=== PATIENT | female | born 1995 | race Two or more races ===

== ENCOUNTER 2025-03-06 11:47 | Emergency (ER) | payer MEDICAID, SELFPAY ==
[2025-03-06 12:02] VITALS: BP 105/71; PULSE 73; RESP 18; TEMP 36.7; O2SAT 100; BMI 27.3
--- NOTE | 2025-03-06 12:09 | EKG_ITS ---
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
--- NOTE | 2025-03-06 12:12 | PD.EDWEAK ---
ED Weakness RME/HPI General Chief complaint: Weakness Stated complaint: Tired X 3 days, right flank pain X 1 month Time Seen by Provider: 03/06/25 12:09 Arrival date/time: 03/06/25 11:47 Limitations: no limitations RME / HPI RME / HPI Narrative: 1 month history of epigastric pain, back pain and 3 days of fatigue. She states she binge drinks and last drink 3 to 4 days ago. She states when she does drink she drinks 3-4 bottles at a time. Her alcohol of choice is fireball . Denies any head injuries. Has no syncopal episodes or fall. Has no hematemesis or lower GI bleed. She has no other acute complaints Related Data Previous Rx's ?Medication ?Instructions ?Recorded loratadine 5 mg-pseudoephedrine ER 1 tab PO Q12H PRN congestion #14 06/21/22 120 mg tablet,extended tabs release,12hr (Alavert D-12 Allergy-Sinus) prednisone 10 mg tablet 10 mg PO BID #6 tabs 06/21/22 omeprazole 20 mg capsule,delayed 20 mg PO QDAY #30 caps 03/06/25 release Allergies Allergy/AdvReac Type Severity Reaction Status Date / Time No Known Allergies Allergy Verified 03/06/25 11:55 Review of Systems Review of Systems Systems Reviewed: All systems reviewed, normal except as documented ED Exam General Limitations: Present no limitations General appearance: Present alert and in no apparent distress Head Head exam: Present atraumatic Eye Eye exam: Present normal appearance, PERRL and EOMI ENT ENT exam: Present normal exam, normal oropharynx and mucous membranes moist Neck Neck exam: Present normal inspection, full ROM and trachea midline Chest Chest inspection: Present normal inspection and symmetric chest wall rise Respiratory Respiratory exam: Present normal lung sounds bilaterally Cardiovascular Cardiovascular exam: Present regular rate, normal rhythm and normal heart sounds Abdominal Exam Abdominal exam: Present soft and normal bowel sounds Extremities Exam Extremities exam: Present normal inspection and full ROM Back Exam Back exam: Present normal inspection and full ROM Neurological Exam Neurological exam: Present alert and oriented X3 Psychiatric Psychiatric exam: Present anxious Skin Skin exam: Present warm, dry, intact and normal color Course Quality Measures none Orders Category Date Time Status EKG (ED ONLY) *Do not use* NOW Care 03/06/25 12:10 Completed EKG (ED Only) Stat Exams 03/06/25 12:09 Draft Alcohol, Blood Medical Stat Lab 03/06/25 12:18 Completed CBC Stat Lab 03/06/25 12:18 Completed CMP [Comprehensive Metabolic Panel] Stat Lab 03/06/25 12:18 Completed Drug Screen,Urine Stat Lab 03/06/25 12:40 Completed HCG,Qualitative Serum Stat Lab 03/06/25 12:18 Completed TSH [Thyroid Stimulating Hormone] Stat Lab 03/06/25 12:18 Completed UA, C/S IF [Urinalysis, C/S if Indicated] Stat Lab 03/06/25 12:40 Completed Vital Signs Vital signs: Vital Signs Temperature 98.1 F 03/06/25 12:02 Pulse Rate 73 03/06/25 12:02 Respiratory Rate 18 03/06/25 12:02 Blood Pressure 105/71 03/06/25 12:02 Pulse Oximetry (%) 100 03/06/25 12:02 Oxygen Delivery Method Room Air 03/06/25 12:02 Weakness MDM Narrative MDM Narrative:: 1 month history of epigastric pain, back pain and 3 days of fatigue. She states she binge drinks and last drink 3 to 4 days ago. She states when she does drink she drinks 3-4 bottles at a time. Her alcohol of choice is fireball . Denies any head injuries. Has no syncopal episodes or fall. Has no hematemesis or lower GI bleed. She has no other acute complaints On exam, patient is nontoxic-appearing although she is anxious appearing. Vital signs are stable. Her CBC reveals a mild anemia with a hemoglobin 10.7 and hematocrit 35.2. She has no metabolic derangement. Urine drug screen is positive for marijuana and cocaine. EKG and remaining studies are unremarkable. Results were discussed with the patient. She would like some assistance in alcohol abuse. This was discussed with our social media manager who also met with the patient. Patient was encouraged to discontinue alcohol abuse. She will be discharged with a prescription of omeprazole. She is asked to return as needed for any worsening or emergent changes Patient data External records reviewed:: None Clinical information provided by:: patient Social determinants that could affect healthcare access:: substance use Patient has the following chronic illnesses:: Alcohol abuse How is presenting disease/condition affected by chronic disease/condition?: exacerbated by Evaluation data The following diagnostics were reviewed and interpreted by me:: lab results (Mild anemia, no leukocytosis. No metabolic derangement. Lipase is unremarkable. UDS is positive for cocaine and marijuana), radiology exam(s) and EKG tracing(s) (Normal sinus rhythm at [address] changes or dynamic T waves) Lab and/or radiology exams considered but not ordered:: n/a Interpretation Summary: Mild anemia Medications / Prescriptions Medications or Prescriptions considered but not ordered:: n/a Medication administrations:: n/a Consultations Consultation(s) initiated? (list below): Yes Diagnosis Weakness Differential Diagnosis: anemia, hypoglycemia and dehydration Most likely diagnosis given after review of the tests above:: Alcohol abuse, anemia Admission Indicated Admission indicated?: not indicated Admission Request Was there a request for admission?: No Disposition Plan Disposition Plan: Discharge Discharge Attestation Discharge Attestation: The patient and all family members were given an opportunity to ask questions and understood the discharge instructions. Discharge instructions specifically effects, indications for sooner follow up or return to the emergency department, and the expected course of current diagnosis. Patient condition: Stable Discharge Plan Plan Patient Disposition: HOME (Self Care) Patient condition on transfer: Stable Prescriptions/Referrals Prescriptions/Med Rec: New omeprazole 20 mg capsule,delayed release(DR/EC) 20 mg PO QDAY Qty: 30 0RF No Action Alavert D-12 Allergy-Sinus 5-120 mg tablet extended release 12 hr 1 tab PO Q12H PRN (Reason: congestion) Qty: 14 0RF prednisone 10 mg tablet 10 mg PO BID Qty: 6 0RF Referrals: Yue Jimenez SOFTWARE ENGINEER DEVELOPER [Primary Care Provider] - In 1 week Problem List Clinical Impression: Alcohol abuse, Acute epigastric pain Patient/Caregiver Discharge Instructions Education Materials: Alcohol Addiction Additional Instructions: - Use the provided medications as prescribed. - Follow-up with your primary doctor. - Return here at anytime for any worsening changes needed. Print Language: Sami Stand Alone Forms: Daisha Award Info., Patient Portal Info Letter
[2025-03-06 12:30] LABS: Basophils # (Auto) 0.0 Thou/mm3 (0.0-0.2); Basophils % (Auto) 0 % (0-2.5); Eosinophils # (Auto) 0.1 Thou/mm3 (0.0-0.5); Eosinophils % (Auto) 1 % (0-10); Hematocrit 35.2 % (36.0-46.0); Hemoglobin 10.7 g/dL (12.0-16.0); Immature Granulocytes Auto 0.01 Thou/mm3 (0.00-0.00); Lymphocytes # (Auto) 1.0 Thou/mm3 (1.0-4.8); Lymphocytes % (Auto) 19 % (10-50); Mean Corpuscular HGB Conc 30.4 g/dl (31.0-37.0); Mean Corpuscular Hemoglobin 23.5 pg (25.0-35.0); Mean Corpuscular Volume 77 fL (80-100); Monocytes # (Auto) 0.3 Thou/mm3 (0.0-0.8); Monocytes % (Auto) 6 % (0-12); Neutrophils # (Auto) 3.9 Thou/mm3 (1.8-7.7); Neutrophils % (Auto) 73 % (37-80); Nucleated Red Blood Cell # 0.00 Thou/mm3 (0.00-0.00); Nucleated Red Blood Cell % 0 /100 WBC (0); Platelet Count 176 Thou/mm3 (140-440); RDW Standard Deviation 48.3 fL (36.4-46.3); Red Blood Count 4.56 Miln/mm3 (4.00-5.20); White Blood Count 5.4 Thou/mm3 (3.6-11.0)
[2025-03-06 12:39] LABS: HCG,Qualitative Serum Negative
[2025-03-06 12:53] LABS: Collection Type, Urine Voided
[2025-03-06 12:58] LABS: Alanine Aminotransferase < 7 U/L (10-49); Albumin, Serum 3.8 gm/dL (3.5-5.0); Albumin/Globulin Ratio 1.4 (1.2-2.2); Alcohol, Blood Medical < 3.0 mg/dL (0-10.0); Alkaline Phosphatase 55 U/L (46-116); Anion Gap 5 (7-16); Aspartate Amino Transferase 16 U/L (0-34); BUN/Creatinine Ratio 9 Ratio (12-20); Bilirubin,Total 0.5 mg/dL (0.3-1.2); Blood Urea Nitrogen 7 mg/dL (9-23); Calcium 8.6 mg/dL (8.3-10.6); Calcium (Corrected) 8.8 mg/dL (8.5-10.1); Carbon Dioxide 28.7 mMol/L (20.0-31.0); Chloride 104 mMol/L (98-107); Creatinine (Component) 0.8 mg/dL (0.6-1.3); Estimated Creatinine Clearance 100.3 mL/min (>60); Globulin 2.8 gm/dL (2.3-3.5); Glucose 84 mg/dL (74-106); Osmolality,Calculated 272 (275-295); Potassium 4.3 mMol/L (3.4-5.1); Sodium 138 mMol/L (136-145); Thyroid Stimulating Hormone 0.85 uIU/mL (0.55-4.78); Total Protein 6.6 gm/dL (5.7-8.2); eGFR > 60 See Note
[2025-03-06 13:32] LABS: Amphetamine/Methamp Scrn,U Negative (Negative); Barbiturate Screen,Urine Negative (Negative); Benzodiazepines Screen,Urine Negative (Negative); Benzoylecgonine Screen, Ur Positive (Negative); Fentanyl Screen,Urine Negative (Negative); Opiate Screen,Urine Negative (Negative); THC Screen,Urine Positive (Negative)
[2025-03-06 13:35] LABS: Bilirubin,Urine Negative (Negative); Blood,Urine Negative (Negative); Clarity,Urine Clear (Clear/Hazy); Color,Urine Yellow (Lt Yel-Yel); Culture Indicated,Urine Not Indicated; Glucose, Urine Negative (Negative); Ketones,Urine Negative (Negative); Leukocyte Esterase,Urine Negative (Negative); Nitrite,Urine Negative (Negative); PH,Urine 6.0 (5.0-7.0); Protein,Urine Trace (Neg - Trace); RBC,Urine 4 /hpf (0-3); Specific Gravity,Urine 1.034 (1.001-1.035); Squamous Epithelial Cell,Urine 1 /hpf (0-5); Urobilinogen,Urine 3.0 mg/dL (0.0-1.0); WBC,Urine < 1 /hpf (0-5)
[2025-03-06 14:24] VITALS: BP 108/65; PULSE 77; RESP 18; TEMP 36.6; O2SAT 98
--- NOTE | 2025-03-06 14:53 | PC.CC ---
ASW spoke with pts about her options for outpatient and residential drug/alcohol treatment. Pt was receptive and stated she would reach out to outpatient treatment in [place].
== END 2025-03-06 14:49 | disposition home or self-care (01) ==
PROVIDERS: Physician Assistant Medical; Emergency Provider Physician Assistant; PCP Registered Nurse Community Health
DX: R10.10 Upper abdominal pain, unspecified (principal); R10.13 Epigastric pain; D64.9 Anemia, unspecified
CPT/HCPCS: 36415; 80053; 80307; 80320; 81001; 84443; 84703; 85025; 93005; 99283; G0480

== ENCOUNTER 2025-05-06 19:08 | Emergency (ER) | payer MEDICAID, SELFPAY ==
[2025-05-06 19:12] VITALS: BMI 27.4
[2025-05-06 19:13] VITALS: BP 118/83; PULSE 107; RESP 18; TEMP 37.5; O2SAT 96
--- NOTE | 2025-05-06 19:26 | EKG_ITS ---
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
[2025-05-06 19:56] LABS: Basophils # (Auto) 0.0 Thou/mm3 (0.0-0.2); Basophils % (Auto) 1 % (0-2.5); Eosinophils # (Auto) 0.2 Thou/mm3 (0.0-0.5); Eosinophils % (Auto) 3 % (0-10); Hematocrit 33.5 % (36.0-46.0); Hemoglobin 10.6 g/dL (12.0-16.0); Immature Granulocytes Auto 0.01 Thou/mm3 (0.00-0.00); Lymphocytes # (Auto) 1.7 Thou/mm3 (1.0-4.8); Lymphocytes % (Auto) 31 % (10-50); Mean Corpuscular HGB Conc 31.6 g/dl (31.0-37.0); Mean Corpuscular Hemoglobin 24.3 pg (25.0-35.0); Mean Corpuscular Volume 77 fL (80-100); Monocytes # (Auto) 0.5 Thou/mm3 (0.0-0.8); Monocytes % (Auto) 8 % (0-12); Neutrophils # (Auto) 3.2 Thou/mm3 (1.8-7.7); Neutrophils % (Auto) 57 % (37-80); Nucleated Red Blood Cell # 0.00 Thou/mm3 (0.00-0.00); Nucleated Red Blood Cell % 0 /100 WBC (0); Platelet Count 191 Thou/mm3 (140-440); RDW Standard Deviation 50.8 fL (36.4-46.3); Red Blood Count 4.36 Miln/mm3 (4.00-5.20); White Blood Count 5.6 Thou/mm3 (3.6-11.0)
[2025-05-06 19:59] VITALS: PULSE 82
[2025-05-06 20:09] LABS: INR 1.0 (0.9-1.3); Prothrombin Time 11.4 Seconds (9.0-12.2)
[2025-05-06 20:11] LABS: HCG,Qualitative Serum Negative
[2025-05-06 20:19] LABS: Alanine Aminotransferase 9 U/L (10-49); Albumin, Serum 4.1 gm/dL (3.5-5.0); Albumin/Globulin Ratio 1.6 (1.2-2.2); Alkaline Phosphatase 55 U/L (46-116); Anion Gap 10 (7-16); Aspartate Amino Transferase 24 U/L (0-34); BUN/Creatinine Ratio 6 Ratio (12-20); Bilirubin,Total 0.6 mg/dL (0.3-1.2); Blood Urea Nitrogen < 5 mg/dL (9-23); Calcium 8.9 mg/dL (8.3-10.6); Calcium (Corrected) 8.9 mg/dL (8.5-10.1); Carbon Dioxide 25.3 mMol/L (20.0-31.0); Chloride 107 mMol/L (98-107); Creatinine (Component) 0.8 mg/dL (0.6-1.3); Estimated Creatinine Clearance 100.4 mL/min (>60); Globulin 2.5 gm/dL (2.3-3.5); Glucose 100 mg/dL (74-106); Osmolality,Calculated 280 (275-295); Potassium 3.5 mMol/L (3.4-5.1); Sodium 142 mMol/L (136-145); Total Protein 6.6 gm/dL (5.7-8.2); Troponin I < 0.002 ng/mL (0.0-0.045); eGFR > 60 See Note
--- NOTE | 2025-05-06 22:09 | PD.EDMEDCL ---
ED Medical Clearance RME/HPI General Chief complaint: Medical Clearance Stated complaint: MEDICAL CLEARANCE Time Seen by Provider: 05/06/25 19:25 Source: patient Arrival date/time: 05/06/25 19:08 Mode of arrival: EMS Limitations: no limitations RME / HPI RME / HPI Narrative: 29-year-old female who was brought into the emergency department for medical clearance for incarceration. Patient has a history of fainting in the past. She states that she feels slightly weak. She has no headache, chest pain, shortness of breath, focal weakness. MD complaint: medical clearance requested Onset (ago): hour(s) Reason for Medical Clearance: medical condition Alleged Intoxication: No Compliant with Home Medications: Yes Traumatic Symptoms: denies traumatic injury Associated Symptoms: weakness Treatments Prior to Arrival: none Related Information Previous Rx's ?Medication ?Instructions ?Recorded loratadine 5 mg-pseudoephedrine ER 1 tab PO Q12H PRN congestion #14 06/21/22 120 mg tablet,extended tabs release,12hr (Alavert D-12 Allergy-Sinus) prednisone 10 mg tablet 10 mg PO BID #6 tabs 06/21/22 omeprazole 20 mg capsule,delayed 20 mg PO QDAY #30 caps 03/06/25 release Allergies Allergy/AdvReac Type Severity Reaction Status Date / Time No Known Allergies Allergy Verified 03/06/25 11:55 Review of Systems Review of Systems Systems Reviewed: All systems reviewed, normal except as documented Past Medical History Past Medical History NEUROLOGIC: Negative Neurological Disorders or Seizures CARDIAC: Negative Cardiac Disorders or Congestive Heart Failure RESPIRATORY: Negative Chronic Obstructive Pulmonary Disease (COPD) GASTROINTESTINAL: Negative Gastrointestinal Disorders, Hepatitis or Colorectal Cancer GENITOURINARY: Negative Genitourinary Disorders, Renal Disease or Prostate Cancer REPRODUCTIVE: Positive Previous Pregnancies; Negative Breast Cancer or Testicular Cancer MUSCULOSKELETAL: Negative Musculoskeletal Disorders or Bone Cancer ENDOCRINE: Negative Endocrine Disorders, Diabetes Mellitus Type 1 or Diabetes Mellitus Type 2 HEMATOLOGIC: Negative Blood Disorders or Anemia OTHER HISTORY: Negative Hospitalization, Autoimmune Disease, Shingles, Falls, Blood Transfusions, Anesthesia Reactions, MRSA, VRSA, Vancomycin-Resistant Enterococci, Human Immunodeficiency Virus (HIV), Chicken Pox, Measles, Mumps, Rubella (Tajik Measles), Pertussis, Clostridium Difficile, Breast Cancer, Cervical Cancer, Colorectal Cancer, Lung Cancer, Ovarian Cancer, Prostate Cancer or Testicular Cancer Family History FAMILY HISTORY: Negative Family Psychiatric Problems, Family Respiratory Disorders, Family Cardiac Disorders, Family Gastrointestinal Problems, Family Cancer, Family Surgery or Family Anesthesia Reaction Surgical History SURGICAL: Positive Abdominal Surgery (Gastric Sleeve) and Tubal Ligation; Negative Section Social History SMOKING STATUS: Current some day smoker SUBSTANCE USE: does not use ED Exam General Limitations: Present no limitations General appearance: Present alert and in no apparent distress Head Head exam: Present atraumatic Eye Eye exam: Present normal appearance, PERRL and EOMI ENT ENT exam: Present normal exam, normal oropharynx and mucous membranes moist Neck Neck exam: Present normal inspection, full ROM and trachea midline Chest Chest inspection: Present normal inspection and symmetric chest wall rise Respiratory Respiratory exam: Present normal lung sounds bilaterally Cardiovascular Cardiovascular exam: Present regular rate, normal rhythm and normal heart sounds Abdominal Exam Abdominal exam: Present soft and normal bowel sounds Extremities Exam Extremities exam: Present normal inspection and full ROM Back Exam Back exam: Present normal inspection and full ROM Neurological Exam Neurological exam: Present alert, oriented X3 and CN II-XII intact Psychiatric Psychiatric exam: Present normal affect and normal mood Skin Skin exam: Present warm, dry, intact and normal color Course Course Course Narrative: Patient here for evaluation of weakness. She has a history of fainting she states with the last episode happening 6 months ago. Patient is being evaluated for clearance for incarceration Quality Measures none Orders Category Date Time Status Shoe Clerk STAT Care 05/06/25 19:28 Completed EKG (ED ONLY) *Do not use* NOW Care 05/06/25 19:28 Completed EKG (ED Only) Stat Exams 05/06/25 19:26 Draft CBC Stat Lab 05/06/25 19:48 Completed Comprehensive Metabolic Panel Stat Lab 05/06/25 19:48 Completed HCG,Qualitative Serum Stat Lab 05/06/25 19:48 Completed Prothrombin Time with INR Stat Lab 05/06/25 19:48 Completed Troponin I Stat Lab 05/06/25 19:48 Completed Vital Signs Vital signs: Vital Signs Temperature 99.5 F 05/06/25 19:13 Pulse Rate 107 H 05/06/25 19:13 Respiratory Rate 18 05/06/25 19:13 Blood Pressure 118/83 05/06/25 19:13 Pulse Oximetry (%) 96 05/06/25 19:13 Oxygen Delivery Method Room Air 05/06/25 19:13 Medical Clearance MDM Narrative MDM Narrative:: 29-year-old female with a history of syncope here for medical clearance for incarceration. Patient data External records reviewed:: [facility] previous records Clinical information provided by:: patient Social determinants that could affect healthcare access:: none Patient has the following chronic illnesses:: None How is presenting disease/condition affected by chronic disease/condition?: no chronic disease Evaluation data The following diagnostics were reviewed and interpreted by me:: lab results and radiology exam(s) Lab and/or radiology exams considered but not ordered:: Patient's EKG was sinus rhythm rate 85 with left atrial enlargement no acute changes. Hemoglobin was 10.6. Interpretation Summary: As above Medications / Prescriptions Medications or Prescriptions considered but not ordered:: None Medication administrations:: None Consultations Consultation(s) initiated? (list below): No Diagnosis Medical Clearance Differential Diagnosis: other (Weakness, depression) Most likely diagnosis given after review of the tests above:: Weakness Admission Indicated Admission indicated?: not indicated Admission Request Was there a request for admission?: No Disposition Plan Disposition Plan: Discharge Discharge Attestation Discharge Attestation: The patient and all family members were given an opportunity to ask questions and understood the discharge instructions. Discharge instructions specifically effects, indications for sooner follow up or return to the emergency department, and the expected course of current diagnosis. Patient condition: Stable Discharge Plan Plan Patient Disposition: Halfway/Court/Law Prescriptions/Referrals Prescriptions/Med Rec: No Action Alavert D-12 Allergy-Sinus 5-120 mg tablet extended release 12 hr 1 tab PO Q12H PRN (Reason: congestion) Qty: 14 0RF prednisone 10 mg tablet 10 mg PO BID Qty: 6 0RF omeprazole 20 mg capsule,delayed release(DR/EC) 20 mg PO QDAY Qty: 30 0RF Referrals: No Primary/Family,Physician [Primary Care Provider] - In 1 week Problem List Clinical Impression: Weakness Patient/Caregiver Discharge Instructions Discharge Activity: activity as tolerated Additional Instructions: Patient cleared medically for incarceration. Patient can be transferred by any means for incarceration. Print Language: Swedish
[2025-05-06 22:32] VITALS: BP 100/56; PULSE 83; RESP 17; O2SAT 97
== END 2025-05-06 22:35 ==
PROVIDERS: Emergency Provider Family Medicine
DX: Z02.89 Encounter for other administrative examinations (principal); R53.1 Weakness
CPT/HCPCS: 36415; 80053; 84484; 84703; 85025; 85610; 93005; 99283

== ENCOUNTER 2025-05-28 06:18 | Emergency (ER) | payer MEDICAID, SELFPAY ==
[2025-05-28 06:22] VITALS: BP 121/74; PULSE 87; RESP 19; TEMP 37.1; O2SAT 98; BMI 27.4
[2025-05-28 07:08] LABS: Collection Type, Urine Voided
[2025-05-28 07:25] LABS: Bilirubin,Urine Negative (Negative); Blood,Urine Negative (Negative); Clarity,Urine Clear (Clear/Hazy); Color,Urine Lt-Yellow (Lt Yel-Yel); Culture Indicated,Urine Not Indicated; Glucose, Urine Negative (Negative); Ketones,Urine Negative (Negative); Leukocyte Esterase,Urine Negative (Negative); Nitrite,Urine Negative (Negative); PH,Urine 6.5 (5.0-7.0); Protein,Urine Negative (Neg - Trace); RBC,Urine < 1 /hpf (0-3); Specific Gravity,Urine 1.022 (1.001-1.035); Squamous Epithelial Cell,Urine 2 /hpf (0-5); Urobilinogen,Urine Negative mg/dL (0.0-1.0); WBC,Urine 1 /hpf (0-5)
--- NOTE | 2025-05-28 07:41 | PD.EDFMALE ---
ED Female Urogenital RME/HPI General Chief complaint: Urogenital-Female Stated complaint: PAIN IN URINATION Time Seen by Provider: 05/28/25 06:18 Arrival date/time: 05/28/25 06:18 This is a 29-year-old female that comes into the emergency room with complaints of feeling itchy. Patient states that she was diagnosed with chlamydia approximately 2 weeks ago. Patient was treated with Zithromax and since then has been feeling itchy. patient denies any rashes lesions to her genital area. Patient states her partner was also treated for chlamydia. Patient denies any fever chills, nausea, vomiting, diarrhea. Patient denies any other symptoms. Related Data Previous Rx's ?Medication ?Instructions ?Recorded loratadine 5 mg-pseudoephedrine ER 1 tab PO Q12H PRN congestion #14 06/21/22 120 mg tablet,extended tabs release,12hr (Alavert D-12 Allergy-Sinus) prednisone 10 mg tablet 10 mg PO BID #6 tabs 06/21/22 omeprazole 20 mg capsule,delayed 20 mg PO QDAY #30 caps 03/06/25 release fluconazole 150 mg tablet 150 mg PO Q3D 2 doses #2 tabs 05/28/25 acetaminophen 325 mg capsule 650 mg (2 x 325 mg) PO Q8HR PRN 06/09/25 pain #30 caps ondansetron 4 mg disintegrating 4 mg PO Q8H PRN nausea and 06/09/25 tablet vomiting #10 tabs Allergies Allergy/AdvReac Type Severity Reaction Status Date / Time No Known Allergies Allergy Verified 06/09/25 14:19 Review of Systems Review of Systems Systems Reviewed: All systems reviewed, normal except as documented Past Medical History Past Medical History NEUROLOGIC: Negative Neurological Disorders or Seizures CARDIAC: Negative Cardiac Disorders or Congestive Heart Failure RESPIRATORY: Negative Chronic Obstructive Pulmonary Disease (COPD) GASTROINTESTINAL: Negative Gastrointestinal Disorders, Hepatitis or Colorectal Cancer GENITOURINARY: Negative Genitourinary Disorders, Renal Disease or Prostate Cancer REPRODUCTIVE: Positive Previous Pregnancies; Negative Breast Cancer or Testicular Cancer MUSCULOSKELETAL: Negative Musculoskeletal Disorders or Bone Cancer ENDOCRINE: Negative Endocrine Disorders, Diabetes Mellitus Type 1 or Diabetes Mellitus Type 2 HEMATOLOGIC: Negative Blood Disorders or Anemia OTHER HISTORY: Negative Hospitalization, Autoimmune Disease, Shingles, Falls, Blood Transfusions, Anesthesia Reactions, MRSA, VRSA, Vancomycin-Resistant Enterococci, Human Immunodeficiency Virus (HIV), Chicken Pox, Measles, Mumps, Rubella ([place] Measles), Pertussis, Clostridium Difficile, Breast Cancer, Cervical Cancer, Colorectal Cancer, Lung Cancer, Ovarian Cancer, Prostate Cancer or Testicular Cancer Family History FAMILY HISTORY: Negative Family Psychiatric Problems, Family Respiratory Disorders, Family Cardiac Disorders, Family Gastrointestinal Problems, Family Cancer, Family Surgery or Family Anesthesia Reaction Surgical History SURGICAL: Positive Abdominal Surgery (Gastric Sleeve) and Tubal Ligation; Negative Section Social History SMOKING STATUS: Current some day smoker SUBSTANCE USE: does not use ED Exam Narrative Physical exam: VITAL SIGNS: Reviewed. GENERAL APPEARANCE: Alert and interactive, follows commands, no acute distress HEAD AND FACE: Non-traumatic. ENT: PERRL, conjuctiva pink and clear, eyelid no trauma, Mucous membrane moist. NECK: Supple, nontender, no nuchal rigidity. CHEST: No tenderness, no crepitus, no paradoxical movement, no retractions. LUNGS: breathing even and unlabored HEART: Regular rate, cap refill less than 2 seconds ABDOMEN: Soft, nondistended, no guarding, nontender, refuses pelvic exam NEUROLOGICAL: Gross motor function intact sensory function intact, Appropriate for age. MUSCULOSKELETAL: low back nontender, full range of motion. no midline tenderness, no meningismus, no step offs EXTREMITIES: No redness no swelling no skin breakdown on bilateral foot and leg. Distal neurovascular status intact bilateral foot SKIN: Color pink, dry, Course Quality Measures none Orders Category Date Time Status HCG Qualitative,Urine Stat Lab 05/28/25 06:45 Completed Urinalysis, C/S if Indicated Stat Lab 05/28/25 06:45 Completed Vital Signs Vital signs: Vital Signs Temperature 98.7 F 05/28/25 06:22 Pulse Rate 87 05/28/25 06:22 Respiratory Rate 19 05/28/25 06:22 Blood Pressure 121/74 05/28/25 06:22 Pulse Oximetry (%) 98 05/28/25 06:22 Oxygen Delivery Method Room Air 05/28/25 06:22 Urogenital - Female MDM Narrative MDM Narrative:: Pt denies an abnormal vaginal discharge. She declines a pelvic exam. Pt states she has had a yeast infection in the past.I spoke to patient at length. Patient was treated with Zithromax for chlamydia. Zithromax does have a high incidence of failure probably would have treated patient with doxycycline. Patient states that she has had a yeast infection in the past when she has had antibiotics. Patient not complaining of urinary symptoms at this time. UA unremarkable. Will treat patient for secondary fungal infection from antibiotics. Dragon dictation: Although this document has been carefully reviewed, there may still be some phonetic and other typographical errors. These errors are purely grammatical due to imperfections in the software program and should not be construed in any way to compromise the substance of the patient's medical care during this visit. Patient data External records reviewed:: [facility] previous records Clinical information provided by:: patient Social determinants that could affect healthcare access:: none Patient has the following chronic illnesses:: None How is presenting disease/condition affected by chronic disease/condition?: no chronic disease Evaluation data The following diagnostics were reviewed and interpreted by me:: lab results Lab and/or radiology exams considered but not ordered:: None Interpretation Summary: See note Medications / Prescriptions Medications or Prescriptions considered but not ordered:: None Medication administrations:: None Consultations Consultation(s) initiated? (list below): No Diagnosis Urogenital Female Differential Diagnosis: urinary tract infection, bacterial vaginosis, trichomoniasis and other Most likely diagnosis given after review of the tests above:: Likely vaginal yeast infection Admission Indicated Admission indicated?: not indicated Admission Request Was there a request for admission?: No Disposition Plan Disposition Plan: Discharge Discharge Attestation Discharge Attestation: The patient and all family members were given an opportunity to ask questions and understood the discharge instructions. Discharge instructions specifically effects, indications for sooner follow up or return to the emergency department, and the expected course of current diagnosis. Patient condition: Stable Discharge Plan Plan Patient Disposition: HOME (Self Care) Patient condition on transfer: Stable Prescriptions/Referrals Prescriptions/Med Rec: New fluconazole 150 mg tablet 150 mg PO Q3D Qty: 2 0RF Rx Instructions: may repeat second dose 72 hrs after first dose if symptoms persist No Action Alavert D-12 Allergy-Sinus 5-120 mg tablet extended release 12 hr 1 tab PO Q12H PRN (Reason: congestion) Qty: 14 0RF prednisone 10 mg tablet 10 mg PO BID Qty: 6 0RF acetaminophen 325 mg capsule 650 mg PO Q8HR PRN (Reason: pain) Qty: 30 0RF ondansetron 4 mg tablet,disintegrating 4 mg PO Q8H PRN (Reason: nausea and vomiting) Qty: 10 0RF omeprazole 20 mg capsule,delayed release(DR/EC) 20 mg PO QDAY Qty: 30 0RF Referrals: Yue Jimenez FNP [Primary Care Provider] - In 1 week Problem List Clinical Impression: Itching in the vaginal area Patient/Caregiver Discharge Instructions Discharge Activity: activity as tolerated Education Materials: Candidiasis Vaginal Additional Instructions: Please keep scheduled appointment with primary provider. Follow up with primary provider in 1-2 days. Come back to ED if symptoms change or worsen Print Language: Cameroonian Stand Alone Forms: Daisha Award Info., Work/School Release, Patient Portal Info Letter PA/DUST COLLECTOR [employer]RE [employer]USHING Supervising Physician JANESSA/DUST COLLECTOR [employer]RE CR[employer]ING Supervising Physician: kris
[2025-05-28 07:48] LABS: HCG Qualitative,Urine Negative
[2025-05-28 08:00] VITALS: BP 103/68; PULSE 65; RESP 17; TEMP 36.4; O2SAT 100
== END 2025-05-28 08:05 | disposition home or self-care (01) ==
PROVIDERS: Nurse Practitioner Family; Emergency Provider Emergency Medicine; PCP Registered Nurse Community Health
DX: L29.2 Pruritus vulvae (principal)
CPT/HCPCS: 81001; 81025; 99283

== ENCOUNTER 2025-06-09 14:14 | Emergency (ER) | payer MEDICAID, SELFPAY ==
[2025-06-09 14:23] VITALS: BP 125/78; PULSE 85; RESP 18; TEMP 37.2; O2SAT 98; BMI 27.4
--- NOTE | 2025-06-09 14:27 | XR_ITS ---
Examination: Abdomen sonogram, Limited Date and time of exam: June 09, 2025, 1433 hours INDICATIONS: Onset abdominal pain this week Technique: Real-time zimmer scale transabdominal sonographic images of the upper abdomen obtained. Findings: Contracted gallbladder 5 mm gallbladder polyp No stones Gallbladder wall 0.36 cm Common bile duct 0.2 cm Pancreatic head 1.6 cm Liver 14.2 cm no focal liver lesions Normal hepatopetal portal venous flow Patent IVC IMPRESSION: 5 mm gallbladder polyp Recommend repeat gallbladder sonogram with fasting
--- NOTE | 2025-06-09 14:28 | PD.EDRME ---
Rapid Medical Screening Exam [facility] Arrival date/time: 06/09/25 14:14 29-year-old female with surgical history significant for gastric sleeve as well as ligation presents for concerns for upper abdominal pain nausea vomiting as well as dysuria Chief Complaint: Urogenital-Female Vital signs: Vital Signs Temperature 98.9 F 06/09/25 14:23 Pulse Rate 85 06/09/25 14:23 Respiratory Rate 18 06/09/25 14:23 Blood Pressure 125/78 06/09/25 14:23 Pulse Oximetry (%) 98 06/09/25 14:23 Oxygen Delivery Method Room Air 06/09/25 14:23
[2025-06-09 14:49] LABS: Collection Type, Urine Clean Catch
[2025-06-09 14:58] LABS: Bilirubin,Urine Negative (Negative); Blood,Urine Negative (Negative); Clarity,Urine Clear (Clear/Hazy); Color,Urine Lt-Yellow (Lt Yel-Yel); Culture Indicated,Urine Not Indicated; Glucose, Urine Negative (Negative); Ketones,Urine Negative (Negative); Leukocyte Esterase,Urine Negative (Negative); Nitrite,Urine Negative (Negative); PH,Urine 6.0 (5.0-7.0); Protein,Urine Negative (Neg - Trace); RBC,Urine 3 /hpf (0-3); Specific Gravity,Urine 1.022 (1.001-1.035); Squamous Epithelial Cell,Urine 2 /hpf (0-5); Urobilinogen,Urine 2.0 mg/dL (0.0-1.0); WBC,Urine 1 /hpf (0-5)
[2025-06-09 15:25] LABS: Basophils # (Auto) 0.0 Thou/mm3 (0.0-0.2); Basophils % (Auto) 1 % (0-2.5); Eosinophils # (Auto) 0.3 Thou/mm3 (0.0-0.5); Eosinophils % (Auto) 4 % (0-10); Hematocrit 32.4 % (36.0-46.0); Hemoglobin 10.1 g/dL (12.0-16.0); Immature Granulocytes Auto 0.01 Thou/mm3 (0.00-0.00); Lymphocytes # (Auto) 1.5 Thou/mm3 (1.0-4.8); Lymphocytes % (Auto) 24 % (10-50); Mean Corpuscular HGB Conc 31.2 g/dl (31.0-37.0); Mean Corpuscular Hemoglobin 23.8 pg (25.0-35.0); Mean Corpuscular Volume 76 fL (80-100); Monocytes # (Auto) 0.6 Thou/mm3 (0.0-0.8); Monocytes % (Auto) 10 % (0-12); Neutrophils # (Auto) 3.9 Thou/mm3 (1.8-7.7); Neutrophils % (Auto) 61 % (37-80); Nucleated Red Blood Cell # 0.00 Thou/mm3 (0.00-0.00); Nucleated Red Blood Cell % 0 /100 WBC (0); Platelet Count 241 Thou/mm3 (140-440); RDW Standard Deviation 49.7 fL (36.4-46.3); Red Blood Count 4.25 Miln/mm3 (4.00-5.20); White Blood Count 6.4 Thou/mm3 (3.6-11.0)
[2025-06-09 15:51] LABS: Alanine Aminotransferase 9 U/L (10-49); Albumin, Serum 4.2 gm/dL (3.5-5.0); Albumin/Globulin Ratio 1.8 (1.2-2.2); Alkaline Phosphatase 66 U/L (46-116); Anion Gap 9 (7-16); Aspartate Amino Transferase 34 U/L (0-34); BUN/Creatinine Ratio 11 Ratio (12-20); Bilirubin,Total 0.4 mg/dL (0.3-1.2); Blood Urea Nitrogen 9 mg/dL (9-23); Calcium 8.9 mg/dL (8.3-10.6); Calcium (Corrected) 8.9 mg/dL (8.5-10.1); Carbon Dioxide 25.8 mMol/L (20.0-31.0); Chloride 104 mMol/L (98-107); Creatinine (Component) 0.8 mg/dL (0.6-1.3); Estimated Creatinine Clearance 100.4 mL/min (>60); Globulin 2.4 gm/dL (2.3-3.5); Glucose 90 mg/dL (74-106); Lipase 40 U/L (12-53); Osmolality,Calculated 276 (275-295); Potassium 4.1 mMol/L (3.4-5.1); Sodium 139 mMol/L (136-145); Total Protein 6.6 gm/dL (5.7-8.2); eGFR > 60 See Note
[2025-06-09] MEDS: ONDANSETRON ODT 4 MG TABRAP PO (16:16)
--- NOTE | 2025-07-12 06:54 | EDNOTE_ITS ---
ED Abdominal Pain RME/HPI General Chief Complaint: Urogenital-Female Stated complaint: Upper abdominal pain, painful urination Time seen by provider: 06/09/25 14:55 Arrival date/time: 06/09/25 14:14 30-year-old female presents to the emergency department for complaints of dysuria generalized abdominal pain patient for symptom onset 2 to 3 days ago reports nothing I symptoms better worse quality cramping and nature no radiation of symptom severity moderate reports no treatment prior to arrival. Limitations: no limitations RME / HPI RME / HPI narrative: 06/09/25 14:14 29-year-old female with surgical history significant for gastric sleeve as well as ligation presents for concerns for upper abdominal pain nausea vomiting as well as dysuria Related Data Previous Rx's ?Medication ?Instructions ?Recorded loratadine 5 mg-pseudoephedrine ER 1 tab PO Q12H PRN c ongestion #14 06/21/22 120 mg tablet,extended tabs release,12hr (Alavert D-12 Allergy-Sinus) prednisone 10 mg tablet 10 mg PO BID #6 tabs 2 omeprazole 20 mg capsule,delayed 20 mg PO QDAY #30 cap s 03/06/25 release fluconazole 150 mg tablet 150 mg PO Q3D 2 doses #2 tab s 05/28/25 acetaminophen 325 mg capsule 650 mg (2 x 325 mg) PO Q8 HR PRN 06/09/25 pain #30 caps ondansetron 4 mg disintegrating 4 mg PO Q8H PRN nausea and 06/09/25 tablet vomiting #10 tabs Allergies Allergy/AdvReac Type Severity Reaction Status Date / Time No Known Allergies Allergy Verified 06/09/25 14:19 Review of Systems Review of Systems Systems Reviewed: All systems reviewed, normal except as documented Constitutional Constitutional: Reports system reviewed and no additional complaints, except as documented, Denies fever(s) and Denies headache(s) Eyes Eyes: Reports system reviewed and no additional complaints, except as documented and Denies blurry vision ENT Ears, Nose, Mouth, and Throat: Reports system reviewed and no additional complaints, except as documented, Denies headache(s), Denies nasal congestion and Denies nasal discharge Cardiovascular Cardiovascular: Reports system reviewed and no additional complaints, except as documented, Denies chest pain and Denies dyspnea Respiratory Respiratory: Reports system reviewed and no additional complaints, except as documented, Denies chest congestion, Denies cough and Denies dyspnea Gastrointestinal Gastrointestinal: Reports system reviewed and no additional complaints, except as documented and Reports abdominal pain Genitourinary Genitourinary: Reports system reviewed and no additional complaints, except as documented and Reports pelvic pain Integumentary/Breasts Skin/Breast: Reports system reviewed and no additional complaints, except as documented and Denies rash Neurologic Neurologic: Reports system reviewed and no additional complaints, except as documented, Reports as per HPI and Denies headache(s) Past Medical History Past Medical History NEUROLOGIC: Negative Neurological Disorders or Seizures CARDIAC: Negative Cardiac Disorders or Congestive Heart Failure RESPIRATORY: Negative Chronic Obstructive Pulmonary Disease (COPD) GASTROINTESTINAL: Negative Gastrointestinal Disorders, Hepatitis or Colorectal Cancer GENITOURINARY: Negative Genitourinary Disorders, Renal Disease or Prostate Cancer REPRODUCTIVE: Positive Previous Pregnancies; Negative Breast Cancer or Testicular Cancer MUSCULOSKELETAL: Negative Musculoskeletal Disorders or Bone Cancer ENDOCRINE: Negative Endocrine Disorders, Diabetes Mellitus Type 1 or Diabetes Mellitus Type 2 HEMATOLOGIC: Negative Blood Disorders or Anemia OTHER HISTORY: Negative Hospitalization, Autoimmune Disease, Shingles, Falls, Blood Transfusions, Anesthesia Reactions, MRSA, VRSA, Vancomycin-Resistant Enterococci, Human Immunodeficiency Virus (HIV), Chicken Pox, Measles, Mumps, Rubella ([place] Measles), Pertussis, Clostridium Difficile, Breast Cancer, Cervical Cancer, Colorectal Cancer, Lung Cancer, Ovarian Cancer, Prostate Cancer or Testicular Cancer Family History FAMILY HISTORY: Negative Family Psychiatric Problems, Family Respiratory Disorders, Family Cardiac Disorders, Family Gastrointestinal Problems, Family Cancer, Family Surgery or Family Anesthesia Reaction Surgical History SURGICAL: Positive Abdominal Surgery (Gastric Sleeve) and Tubal Ligation; Negative Section Social History SMOKING STATUS: Current every day smoker SUBSTANCE USE: does not use ED Exam General Limitations: Present no limitations General appearance: Present alert and in no apparent distress Head Head exam: Present atraumatic Eye Eye exam: Present normal appearance, PERRL and EOMI ENT ENT exam: Present normal exam, normal oropharynx and mucous membranes moist Neck Neck exam: Present normal inspection, full ROM and trachea midline Chest Chest inspection: Present normal inspection and symmetric chest wall rise Respiratory Respiratory exam: Present normal lung sounds bilaterally; Absent respiratory distress or wheezes Cardiovascular Cardiovascular exam: Present regular rate, normal rhythm and normal heart sounds; Absent bradycardia, tachycardia or irregular rhythm Abdominal Exam Abdominal exam: Present soft and normal bowel sounds; Absent distention, tenderness, guarding, rebound, rigidity, Pierre's sign, Rovsing's sign or tenderness at McBurney's Point Abdominal tenderness: Absent RUQ or RLQ Extremities Exam Extremities exam: Present normal inspection and full ROM Back Exam Back exam: Present normal inspection and full ROM Neurological Exam Neurological exam: Present alert, oriented X3 and CN II-XII intact Psychiatric Psychiatric exam: Present normal affect and normal mood Skin Skin exam: Present warm, dry, intact and normal color Course Quality Measures none Orders Category Date Time Status US gall bladder Stat Exams 06/09/25 14:27 Completed CBC Stat Lab 06/09/25 15:00 Completed Comprehensive Metabolic Panel Stat Lab 06/09/25 15:00 Completed Lipase Stat Lab 06/09/25 15:00 Completed UA, C/S IF [Urinalysis, C/S if Indicated] Stat Lab 06/09/25 14:33 Completed Metoclopramide Inj [Reglan Inj] Med 06/09/25 14:29 Discontinued 10 mg IVP X1 ONE Ondansetron Odt [Zofran Odt] Med 06/09/25 16:11 Discontinued 4 mg PO X1 ONE Sodium Chloride 0.9% 1000 ml [Ns] 1,000 ml Med 06/09/25 14:29 Discontinued IV 999 mls/hr Vital Signs Vital signs: Vital Signs Temperature 98.9 F 06/09/25 14:23 Pulse Rate 85 06/09/25 14:23 Respiratory Rate 18 06/09/25 14:23 Blood Pressure 125/78 06/09/25 14:23 Pulse Oximetry (%) 98 06/09/25 14:23 Oxygen Delivery Method Room Air 06/09/25 14:23 O2 saturation 98% room air within normal limits Abdominal Pain MDM MDM Narrative MDM Narrative:: 30-year-old female presents to the emergency department for complaints of dysuria generalized abdominal pain patient for symptom onset 2 to 3 days ago reports nothing I symptoms better worse quality cramping and nature no radiation of symptom severity moderate reports no treatment prior to arrival. On exam patient well-appearing patient does not appear ill or toxic no acute distress Lab work and imaging obtained no acute emergent findings noted Patient given IV fluids as well as medication here which improved symptoms For emergent concerns patient is instructed return immediately for further evaluation Patient data External records reviewed:: [facility] previous records Clinical information provided by:: patient Social determinants that could affect healthcare access:: none Patient has the following chronic illnesses:: See history How is presenting disease/condition affected by chronic disease/condition?: uneffected by Evaluation data The following diagnostics were reviewed and interpreted by me:: lab results and radiology exam(s) Lab and/or radiology exams considered but not ordered:: Labs and radiology obtained Interpretation Summary: Reviewed by me Medications / Prescriptions Medications or Prescriptions considered but not ordered:: Given Medication administrations:: Medication Administration History Discontinued Medications Sodium Chloride (Ns) 1,000 mls @ 999 mls/hr IV .Q1H1M ONE Stop: 06/09/25 15:29 Last Admin: 06/09/25 16:19 Dose: Not Given Documented By: OA Non-Admin Reason: Discontinued Metoclopramide HCl (Metoclopramide Inj 5 Mg/Ml Vial 2 Ml) 10 mg IVP X1 ONE; Protocol Stop: 06/09/25 14:30 Last Admin: 06/09/25 16:19 Dose: Not Given Documented By: OA Non-Admin Reason: Discontinued Ondansetron HCl (Ondansetron Odt 4 Mg Tabrap) 4 mg PO X1 ONE; Protocol Stop: 06/09/25 16:12 Last Admin: 06/09/25 16:16 Dose: 4 mg Documented By: OA Given Consultations Consultation(s) initiated? (list below): No Diagnosis Differential diagnosis abdominal pain: abdominal pain, acute appendicitis, pancreatitis and small bowel obstruction Most likely diagnosis given after review of the tests above:: Abdominal pain, constipation, dysuria Admission Indicated Admission indicated?: not indicated Admission Request Was there a request for admission?: No Disposition Plan Disposition Plan: Discharge Discharge Attestation Discharge Attestation: The patient and all family members were given an opportunity to ask questions and understood the discharge instructions. Discharge instructions specifically effects, indications for sooner follow up or return to the emergency department, and the expected course of current diagnosis. Patient condition: Stable Discharge Plan Plan Patient Disposition: HOME (Self Care) Discharge Disposition comment: Stable Prescriptions/Referrals Prescriptions/Med Rec: New acetaminophen 325 mg capsule 650 mg PO Q8HR PRN (Reason: pain) Qty: 30 0RF ondansetron 4 mg tablet,disintegrating 4 mg PO Q8H PRN (Reason: nausea and vomiting) Qty: 10 0RF No Action Alavert D-12 Allergy-Sinus 5-120 mg tablet extended release 12 hr 1 tab PO Q12H PRN (Reason: congestion) Qty: 14 0RF prednisone 10 mg tablet 10 mg PO BID Qty: 6 0RF omeprazole 20 mg capsule,delayed release(DR/EC) 20 mg PO QDAY Qty: 30 0RF fluconazole 150 mg tablet 150 mg PO Q3D Qty: 2 0RF Rx Instructions: may repeat second dose 72 hrs after first dose if symptoms persist Referrals: Yue Jimenez FNP [Primary Care Provider] - 06/12/25 Problem List Clinical Impression: Nausea & vomiting, Constipation Patient/Caregiver Discharge Instructions Education Materials: ED Vomiting (Adult) Additional Instructions: Please follow up with your primary care doctor in the next 24-48hrs for any worsening symptoms return here immediately Print Language: Icelandic Stand Alone Forms: Daisha Award Info., Work/School Release, Patient Portal Info Letter PA/OFFICER CAPTAIN Supervising Physician JANESSA/CHRISTOPHER Supervising Physician: Dr palma
== END 2025-06-09 16:27 | disposition home or self-care (01) ==
PROVIDERS: Nurse Practitioner Primary Care; Emergency Provider Family Medicine; PCP Registered Nurse Community Health
DX: R11.2 Nausea with vomiting, unspecified (principal); K59.00 Constipation, unspecified
CPT/HCPCS: 36415; 76705; 80053; 81001; 83690; 85025; 99283; Q0162